=== PATIENT | female | born 1990 | race Hispanic/Latino ===

== ENCOUNTER 2017-11-04 23:13 | Emergency (ER) | payer OTHER ==
[2017-11-04 23:50] LABS: APPEARANCE,URINE Clear (CLEAR); BILIRUBIN,URINE Negative (NEGATIVE); COLOR,URINE Yellow (YELLOW); GLUCOSE, URINE (UA) Negative (NEGATIVE); KETONES,URINE Negative (NEGATIVE); LEUKOCYTE ESTERASE ,URINE Trace (NEGATIVE); NITRATE,URINE Negative (NEGATIVE); OCCULT BLOOD,URINE Negative (NEGATIVE); PROTEIN,URINE Negative (NEGATIVE); UROBILINOGEN,URINE 0.2 mg/dL (0.2-1.0)
[2017-11-05 00:02] LABS: BACTERIA,URINE Few /HPF (None Seen); RBC,URINE 0-1 /HPF (0-1); SQUAMOUS EPITHELIAL CELL,UR 0-2 /HPF (0-2); WBC,URINE 0-1 /HPF (0-1)
== END 2017-11-05 02:28 | disposition home or self-care (01) ==
LOC: EDH 23:13
DX: O20.0 Threatened abortion (principal); Z3A.01 Less than 8 weeks gestation of pregnancy
CPT/HCPCS: 76801; 81001

== ENCOUNTER 2018-07-01 18:27 | Inpatient (IN) | payer MEDICAID | END 2018-07-03 13:10 | disposition home or self-care (01) | LOC: EDH 18:27 → LDH 18:38 → WSH 07-02 10:10 ==

== ENCOUNTER 2020-03-14 22:08 | Emergency (ER) | payer MEDICAID, OTHER ==
[~2020-03-14 22:08] MED LIST: FISH1CAP50 PO; MAGN30TA2 PO; PREN1TAB80 PO
[2020-03-14 22:41] LABS: BASOPHILS % (AUTO) 0.5 % (0.0-5.0); EOSINOPHILS % (AUTO) 1.6 % (0.0-8.0); LYMPHOCYTES % (AUTO) 31.1 % (21.0-51.0); MEAN CORPUSCULAR HEMOGLOBIN 34.3 pg (27.0-33.0); MEAN CORPUSCULAR HGB CONC 34.9 g/dL (32.0-36.0); MEAN CORPUSCULAR VOLUME 98.3 fL (79-99); MONOCYTES % (AUTO) 5.3 % (3.0-13.0); NEUTROPHILS % (AUTO) 61.1 % (40.0-77.0); PLATELET COUNT (AUTO) 254 K/uL (130-400); RED BLOOD CELL COUNT(AUTO) 3.56 MIL/uL (4.00-5.50); RED CELL DISTRIBUTION WIDTH 10.9 % (11.0-15.5); WHITE BLOOD COUNT (AUTO) 5.7 K/uL (4.8-10.8)
[2020-03-14 22:48] LABS: APPEARANCE,URINE Clear (CLEAR); BILIRUBIN,URINE Negative (NEGATIVE); COLOR,URINE Yellow (YELLOW); GLUCOSE, URINE (UA) Negative (NEGATIVE); KETONES,URINE Negative (NEGATIVE); LEUKOCYTE ESTERASE ,URINE Negative (NEGATIVE); NITRATE,URINE Negative (NEGATIVE); OCCULT BLOOD,URINE Large (NEGATIVE); PROTEIN,URINE Negative (NEGATIVE)
[2020-03-14 22:49] LABS: CREATININE 0.9 mg/dL (0.5-1.5); POTASSIUM 3.6 mmol/L (3.5-5.1)
[2020-03-14 22:59] LABS: ALBUMIN 4.2 g/dL (3.5-5.0); BILIRUBIN,TOTAL 0.2 mg/dL (0.2-1.0); TOTAL PROTEIN, SERUM 8.2 g/dL (6.0-8.3)
[2020-03-14 23:04] LABS: BACTERIA,URINE None Seen /HPF (None Seen); RBC,URINE 26-50 /HPF (0-1); SQUAMOUS EPITHELIAL CELL,UR Rare /HPF (0-2); WBC,URINE None Seen /HPF (0-1)
== END 2020-03-14 23:49 | disposition home or self-care (01) ==
LOC: EDH 22:08
DX: O03.9 Complete or unspecified spontaneous abortion without complication (principal); Z3A.01 Less than 8 weeks gestation of pregnancy
CPT/HCPCS: 36415; 76801; 80053; 81001; 84702; 85025; 86850; 86900; 86901

== ENCOUNTER 2021-04-23 16:46 | Inpatient (IN) | payer MEDICAID ==
[~2021-04-23] VITALS: Ht 152.4 cm; Wt 73.5 kg
[2021-04-23] MEDS ORDERED: AMPICILLIN 2GM+NS 100ML 100 ML IV SCH (17:30)
[2021-04-23] MEDS ORDERED: OXYTOCIN-LR 20 UNITS/1000 ML 1,000 ML IV SCH ×2 (17:30)
[2021-04-23] MEDS ORDERED: LACTATED RINGERS 1000ML 1,000 ML IV PRN (17:30)
[2021-04-23] MEDS ORDERED: AMPICILLIN 1GM+NS 50ML 50 ML IV SCH (17:30)
[2021-04-23 17:46] LABS: HEMATOCRIT 31.5 % (36-48); MEAN CORPUSCULAR HEMOGLOBIN 33.5 pg (27.0-33.0); MEAN CORPUSCULAR HGB CONC 34.3 g/dL (32.0-36.0); MEAN CORPUSCULAR VOLUME 97.8 fL (79-99); RED BLOOD CELL COUNT(AUTO) 3.22 MIL/uL (4.00-5.50); RED CELL DISTRIBUTION WIDTH 11.7 % (11.0-15.5); WHITE BLOOD COUNT (AUTO) 6.1 K/uL (4.8-10.8)
[2021-04-23 17:49] LABS: APPEARANCE,URINE Clear (CLEAR); BILIRUBIN,URINE Negative (NEGATIVE); COLOR,URINE Yellow (YELLOW); GLUCOSE, URINE (UA) Negative (NEGATIVE); KETONES,URINE 15 mg/dL (NEGATIVE); LEUKOCYTE ESTERASE ,URINE Negative (NEGATIVE); NITRATE,URINE Negative (NEGATIVE); OCCULT BLOOD,URINE Negative (NEGATIVE); PH,URINE 6.5 (5.0-8.0); PROTEIN,URINE Negative (NEGATIVE)
[2021-04-23] MEDS ORDERED: BUTORPHANOL TARTRATE 2 MG/ML ONE (20:22)
[2021-04-23] MEDS: OXYTOCIN-LR 20 UNITS/1000 ML 1,000 ML IV SCH ×2 (20:37→21:00)
[2021-04-23 21:09] VITALS: BP 120/80
[2021-04-23] MEDS ORDERED: WITCH HAZEL 1 PAD TP PRN (21:30)
[2021-04-23] MEDS ORDERED: ACETAMINOPHEN 325 MG TAB PO PRN (21:30)
[2021-04-23] MEDS ORDERED: ACETAMINOPHEN WITH CODEINE 1 TAB TAB PO PRN (21:30)
[2021-04-23] MEDS ORDERED: BENZOCAINE/LANOLIN/ALOE VERA 60 ML AEROSOL TP PRN (21:30)
[2021-04-23] MEDS ORDERED: LANOLIN 30GM OINTMENT TP PRN (21:30)
[2021-04-23 23:05] VITALS: BP 121/59
[2021-04-24] MEDS: IBUPROFEN 600 MG TABLET PO PRN ×2 (00:47→08:46)
[2021-04-24] MEDS ORDERED: BUTORPHANOL TARTRATE 1 MG/ML IVP ONE (02:00)
[2021-04-24 02:58] VITALS: BP 120/67
[2021-04-24 06:36] LABS: HEMATOCRIT 28.7 % (36-48); MEAN CORPUSCULAR HEMOGLOBIN 32.9 pg (27.0-33.0); MEAN CORPUSCULAR HGB CONC 34.5 g/dL (32.0-36.0); MEAN CORPUSCULAR VOLUME 95.3 fL (79-99); RED BLOOD CELL COUNT(AUTO) 3.01 MIL/uL (4.00-5.50); RED CELL DISTRIBUTION WIDTH 11.5 % (11.0-15.5); WHITE BLOOD COUNT (AUTO) 8.4 K/uL (4.8-10.8)
[2021-04-24 07:07] VITALS: BP 127/54
[2021-04-24] MEDS ORDERED: DOCUSATE SODIUM 100 MG CAP PO SCH (09:00)
[2021-04-24 11:29] VITALS: BP 128/69
[2021-04-24 16:18] VITALS: BP 132/73
[2021-04-24 19:10] VITALS: BP 126/72
== END 2021-04-24 21:00 | disposition home or self-care (01) | DRG 560 ==
LOC: EDH 16:46 → LDH 16:47 → WSH 22:50
PROVIDERS: ADMIT Obstetrics & Gynecology; ATTEND Obstetrics & Gynecology
PROC: 10E0XZZ Delivery of Products of Conception, External Approach (ICD-10-PCS; principal; 2021-04-23)
DX: O80 Encounter for full-term uncomplicated delivery (principal); Z37.0 Single live birth; Z3A.37 37 weeks gestation of pregnancy
CPT/HCPCS: 36415; 59025; 76805; 80305; 81003; 85027; 86592; 86701; 86850; 86900; 86901; 87340; 87390; 96360; 96361; 96365; 96366; G0378; G0379; J0290; J0595; J2590; J7120

== ENCOUNTER 2022-05-09 10:50 | Emergency (ER) | payer MEDICAID ==
[~2022-05-09] VITALS: Ht 152.4 cm; Wt 66.7 kg
[~2022-05-09 10:50] MED LIST changes: -FISH1CAP50 PO; -MAGN30TA2 PO
[2022-05-09 10:57] VITALS: BP 136/79
[2022-05-09] MEDS ORDERED: TETANUS/DIPHTHERIA TOXOID [ADULT] 0.5 ML VIAL IM ONE (12:30)
[2022-05-09] MEDS ORDERED: AMOX875T2 PO (12:54)
[2022-05-09] MEDS ORDERED: IBUP-2070 PO (12:54)
[2022-05-09] MEDS ORDERED: MUPI22OI2 TP (14:10)
[2022-05-09] MEDS ORDERED: IBUPROFEN 600 MG TABLET PO ONE (14:30)
== END 2022-05-09 14:20 | disposition home or self-care (01) ==
LOC: EDH 10:50
DX: S91.331A Puncture wound without foreign body, right foot, initial encounter (principal); W45.0XXA Nail entering through skin, initial encounter; Y93.89 Activity, other specified; Y92.89 Other specified places as the place of occurrence of the external cause; Y99.8 Other external cause status
CPT/HCPCS: 73620; 90471; 90714

== ENCOUNTER 2023-07-05 20:52 | Emergency (ER) | payer MEDICAID, OTHER ==
[~2023-07-05] VITALS: Ht 152.4 cm; Wt 74.8 kg
[~2023-07-05 20:52] MED LIST changes: +AMOX875T2 PO; +IBUP-2070 PO; +MUPI22OI2 TP
[2023-07-05 21:39] LABS: APPEARANCE,URINE CLEAR (CLEAR); BILIRUBIN,URINE NEGATIVE (NEGATIVE); COLOR,URINE COLORLESS (YELLOW); GLUCOSE, URINE (UA) NEGATIVE (NEGATIVE); KETONES,URINE NEGATIVE (NEGATIVE); LEUKOCYTE ESTERASE ,URINE NEGATIVE Leu/uL (NEGATIVE); NITRATE,URINE NEGATIVE (NEGATIVE); OCCULT BLOOD,URINE NEGATIVE (NEGATIVE); PROTEIN,URINE NEGATIVE (NEGATIVE); UROBILINOGEN,URINE 0.2 mg/dL (0.2-1.0)
[2023-07-05 21:42] LABS: ADD UA MICROSCOPIC NO
[2023-07-05 21:47] LABS: BASOPHILS # (AUTO) 0.03 K/uL (0.00-0.20); BASOPHILS % (AUTO) 0.5 % (0.0-5.0); EOSINOPHILS # (AUTO) 0.21 K/uL (0.00-0.70); EOSINOPHILS % (AUTO) 3.4 % (0.0-8.0); HEMATOCRIT 37.1 % (36-48); IMMATURE GRANULOCYTE ABSOLUTE 0.01 K/uL (0-1); LYMPHOCYTES # (AUTO) 1.8 K/uL (1.0-4.8); LYMPHOCYTES % (AUTO) 28.7 % (21.0-51.0); MEAN CORPUSCULAR HEMOGLOBIN 34.1 pg (27.0-33.0); MEAN CORPUSCULAR HGB CONC 35.8 g/dL (32.0-36.0); MEAN CORPUSCULAR VOLUME 95.1 fL (79-99); MONOCYTES # (AUTO) 0.4 K/uL (0.1-1.0); MONOCYTES % (AUTO) 6.6 % (3.0-13.0); NEUTROPHILS # (AUTO) 3.8 K/uL (1.8-7.7); NEUTROPHILS % (AUTO) 60.6 % (40.0-77.0); PLATELET COUNT (AUTO) 226 K/uL (130-400); RED CELL DISTRIBUTION WIDTH 11.2 % (11.0-15.5); WHITE BLOOD COUNT (AUTO) 6.2 K/uL (4.8-10.8)
[2023-07-05 22:00] LABS: CREATININE 0.7 mg/dL (0.5-1.5); POTASSIUM 3.4 mmol/L (3.5-5.1)
[2023-07-05] MEDS ORDERED: ACETAMINOPHEN 500 MG TABLET PO ONE (22:00)
[2023-07-05 22:05] LABS: ALBUMIN 3.9 g/dL (3.5-5.0); BILIRUBIN,TOTAL 0.4 mg/dL (0.2-1.0); TOTAL PROTEIN, SERUM 7.8 g/dL (6.0-8.3)
[2023-07-05] MEDS ORDERED: KCL 20 MEQ ERTAB PO ONE (23:00)
[2023-07-05 23:51] VITALS: BP 139/74; PULSE 72; RESP 16; O2SAT 100
== END 2023-07-05 23:51 | disposition home or self-care (01) ==
LOC: EDH 20:52
DX: O34.81 Maternal care for other abnormalities of pelvic organs, first trimester (principal); N83.292 Other ovarian cyst, left side; Z3A.01 Less than 8 weeks gestation of pregnancy; Z79.899 Other long term (current) drug therapy
CPT/HCPCS: 36415; 76801; 80053; 81003; 81025; 84702; 85025; 86850; 86900; 86901

== ENCOUNTER 2024-02-27 10:10 | Observation (INO) | payer MEDICAID ==
[~2024-02-27] VITALS: Ht 152.4 cm; Wt 78.5 kg
[2024-02-27 10:11] VITALS: BP 134/74; PULSE 70; RESP 20; TEMP 98.2
[2024-02-27 10:36] LABS: APPEARANCE,URINE CLEAR (CLEAR); BILIRUBIN,URINE NEGATIVE (NEGATIVE); GLUCOSE, URINE (UA) NEGATIVE (NEGATIVE); KETONES,URINE NEGATIVE (NEGATIVE); LEUKOCYTE ESTERASE ,URINE NEGATIVE Leu/uL (NEGATIVE); NITRATE,URINE NEGATIVE (NEGATIVE); OCCULT BLOOD,URINE NEGATIVE (NEGATIVE); PROTEIN,URINE NEGATIVE (NEGATIVE); UROBILINOGEN,URINE 0.2 mg/dL (0.2-1.0)
[2024-02-27 10:38] LABS: ADD UA MICROSCOPIC NO; COLOR,URINE Straw (YELLOW)
[2024-02-27] MEDS: LACTATED RINGERS 1000ML IV PRN (11:30)
== END 2024-02-27 13:45 | disposition home or self-care (01) ==
LOC: EDH 10:10 → LDH 10:11
PROVIDERS: ADMIT Obstetrics & Gynecology; ATTEND Obstetrics & Gynecology
DX: O62.9 Abnormality of forces of labor, unspecified (principal); Z3A.38 38 weeks gestation of pregnancy
CPT/HCPCS: 96360; 96361; 81003; G0378 ×3; G0379; J7120; 59025